=== PATIENT | female | born 1980 | race Caucasian/White ===

== ENCOUNTER 2019-11-12 06:25 | Inpatient (IN) ==
[2019-11-12] MEDS ORDERED: Lactated Ringers 1000 ml BAG 1,000 ML IV ONE (06:56)
[2019-11-12] MEDS ORDERED: Lactated Ringers 1000 ml BAG 1,000 ML IV SCH ×2 (07:00→10:00)
[2019-11-12 07:46] LABS: Urine Benzodiazepine Screen None Detected (None Detect); Urine Opiates Screen None Detected (None Detect)
[2019-11-12] MEDS ORDERED: Oxytocin 10 UNITS/ML 1 ML VIAL IM ONE (09:16)
[2019-11-12] MEDS ORDERED: Dibucaine 1% OINT 28.35 GM TUBE PR PRN (09:16)
[2019-11-12] MEDS ORDERED: Glycerin ADULT 2.4 gm SUPP PR PRN (09:16)
[2019-11-12] MEDS ORDERED: Witch Hazel PAD JAR TOPICAL PRN (09:16)
[2019-11-13 07:17] LABS: ABS Eosinophils 0.1 10^3/ul (0-0.6); ABS Lymphocytes 1.7 10^3/ul (1.0-4.8); ABS Monocytes 0.7 10^3/ul (0-0.8); Eosinophil % 0.7 %; Hematocrit 30 % (35-47); Lymphocyte % 12.7 %; Mean Corpuscular HGB Conc 36 g/dL (31-36); Mean Corpuscular Hemoglobin 33 pg (27-31); Mean Corpuscular Volume 90 fL (80-97); Mean Platelet Volume 8.9 fL (7.4-10.4); Nucleated Red Blood Cells % 0.1; Platelet Count 170 10^3/uL (150-450); Red Blood Count 3.36 10^6 /uL (3.70-4.87); Red Cell Distribution Width 14 % (10-15); White Blood Count 13.7 10^3/uL (3.5-10.8)
[2019-11-13 08:10] VITALS: BP 109/67
== END 2019-11-13 12:58 | disposition home or self-care (01) | DRG 806 ==
LOC: MCHOBOUT 06:25 → MCHOB 07:00
PROVIDERS: ADMIT Midwife; ATTEND Midwife